=== PATIENT | male | born 1995 | race Caucasian/White ===

== ENCOUNTER 2022-01-03 18:13 | Emergency (ER) | payer OTHER, SELFPAY ==
[2022-01-03 18:13] VITALS: BP 136/82; PULSE 70; RESP 18; TEMP 36.8; O2SAT 99; BMI 25.7
--- NOTE | 2022-01-03 18:19 | XR_ITS ---
PROCEDURE INFORMATION: Exam: XR Left Hand Exam date and time: 01/03/2022 6:24 PM Age: 26 years old Clinical indication: Injury or trauma; Other: Hydrolic hose; Fracture, traumatic injury and laceration; Open fracture, severity classification not provided; Hand; Left; Index finger and little finger; Additional info: Trauma to fingers from hydrolic hose TECHNIQUE: Imaging protocol: XR Left hand. Views: 3 or more views. COMPARISON: No relevant prior studies available. FINDINGS: Bones/joints: Nondisplaced fracture of the middle phalanx of the index finger. There appears to be a large soft tissue defect and soft tissue edema around this fracture. Soft tissues: There appears to be a dorsal soft tissue defect in the little finger overlying the distal interphalangeal joint. The distal phalanx of the little finger is anteriorly subluxated/dislocated. IMPRESSION: 1. Nondisplaced fracture of the middle phalanx of the index finger. There appears to be a large soft tissue defect and soft tissue edema around this fracture. 2. There appears to be a dorsal soft tissue defect in the little finger overlying the distal interphalangeal joint. The distal phalanx of the little finger is anteriorly subluxated/dislocated. 3. No radiopaque foreign bodies.
--- NOTE | 2022-01-03 18:43 | [facility].EDGENADL ---
ED Disposition Clinical Impression: Open fracture of hand Qualifiers: Encounter type: initial encounter Laterality: left Qualified Code(s): S62.92XB - Unspecified fracture of left wrist and hand, initial encounter for open fracture Disposition: Home, Self-Care Condition on Discharge: Fair Referrals: Provider,Referral, MD [Primary Care Provider] - - Critical Care Critical Care Time: No Attestation: On 01/03/22, the high probability of a clinically significant, sudden or life threatening deterioration of the following system(s) required my full and direct attention, intervention and personal management. The time I documented below is in addition to time spent performing reported procedures but includes the following listed in this critical care notation. Medical Decision Making - Medical Records Medical records reviewed: Yes: I reviewed the patient's medical records. - Fabrice Inquiry Pt receiving controlled substance: No Vital Signs: 01/03/22 18:13 Temperature 98.3 F Temperature Source Oral Pulse Rate [Right Radial] 70 Respiratory Rate 18 Blood Pressure [Right Arm] 136/82 Blood Pressure Mean [Right Arm] 100 Blood Pressure Source [Right Arm] Automatic Cuff Blood Pressure Position [Right Arm] Sitting 02 Sat by Pulse Oximetry 99 Oxygen Delivery Method Room Air Orders (Tests/Meds): ED MEDICATIONS Discontinued Medications Generic Name Dose Route Start Last Admin Trade Name Freq PRN Reason Stop Dose Admin Cefazolin Sodium 2 gm/ Sodium 50 mls @ 100 mls/hr 01/03/22 18:17 01/03/22 18:33 Chloride IV 01/03/22 18:46 100 mls/hr ONCE ONE Administration Morphine Sulfate 6 mg 01/03/22 18:18 01/03/22 18:33 Morphine 4mg/Ml Syringe IV 01/03/22 18:19 6 mg ONCE ONE Administration Ondansetron HCl 4 mg 01/03/22 18:29 01/03/22 18:33 Ondansetron 4mg/2ml Vial IV 01/03/22 18:30 4 mg ONCE ONE Administration Tetanus/Reduced Diphtheria/Acell Pertussis 0.5 ml 01/03/22 18:18 01/03/22 18:45 Tet/Diphth/Pert-Adult 0.5ml Syringe IM 01/03/22 18:19 0.5 ml .ONCE ONE Administration Medical Decision Narrative: Patient is a 26-year-old male presenting to the emergency department with chief complaint of left hand pain. Differential diagnosis for this patient includes open fracture, fracture, dislocation, vascular injury, partial amputation, others. Patient was given 6 of morphine, 4 of Zofran for symptomatic control. Given the patient has significant open injuries, will give patient 2 of Ancef as well as Tdap. X-ray confirmed the patient has fractures of the first and third digits. Contacted transfer center to request transfer for hand consultation. She has a middle phalanx fracture, as well as distal phalanx subluxation. . Discussed with the physician on-call at [phone], patient will be accepted to the emergency department to be seen by hand. Patient requesting to go by private vehicle, as he does not currently have insurance. Given the patient is stable, and will present directly to the emergency department, believe that this is a reasonable option. General Adult HPI - General Chief complaint: Extremity Injury, Upper Stated complaint: Finger accident Time Seen by Provider: 01/03/22 18:30 Mode of Arrival: Ambulatory Source of Information: Patient Limitations: No Limitations Description of Symptoms (Recalled from ER Triage Doc. by RN): Pt reportedly working on hydraulic hose, it exploded and the pressure cut off tip of left index finger at 2nd knuckle, and left pinky at 1st knuckle - History of Present Illness HPI narrative: Is a 26-year-old male presenting to the emergency department with chief complaint of left hand pain. Had a hydraulic hose from a tractor hit his hand. He has move the first and third digits. This happened about 10 to 15 minutes prior to arrival. Patient is unsure of his tetanus status, complaining of severe pain in his left hand. He states that there was n
--- NOTE | 2022-01-03 18:55 | PC.NURSE ---
phone call to transfer center for transfer to their facility, paged put out for
[2022-01-03 20:17] VITALS: BP 123/79; PULSE 76; RESP 18; TEMP 36.8; O2SAT 97
== END 2022-01-03 20:20 | disposition home or self-care (01) ==
PROVIDERS: Emergency Provider Emergency Medicine
DX: S62.661A Nondisplaced fracture of distal phalanx of left index finger, initial encounter for closed fracture (principal); S68.121A Partial traumatic metacarpophalangeal amputation of left index finger, initial encounter; S63.247A Subluxation of distal interphalangeal joint of left little finger, initial encounter; W22.8XXA Striking against or struck by other objects, initial encounter; Y92.69 Other specified industrial and construction area as the place of occurrence of the external cause; Y99.0 Civilian activity done for income or pay; Z23 Encounter for immunization
CPT/HCPCS: 73130; 90715; 96374; 96375; 99284; J2405